=== PATIENT | female | born 1985 | race Caucasian/White ===

== ENCOUNTER 2019-02-20 15:05 | Emergency (ER) | payer MEDICAID ==
[~2019-02-20] VITALS: Ht 160 cm; Wt 65.5 kg
[~2019-02-20 15:05] MED LIST: CLON1TAB PO; SERT100T PO
[2019-02-20 15:10] VITALS: BP 110/65
--- NOTE | 2019-02-20 15:15 | NUR ---
PT AMBULATED TO LOBBY AT THIS TIME, VSS, RR EVEN, NON-LABORED, AND BREATH SOUNDS CLEAR.
--- NOTE | 2019-02-20 15:25 | NUR ---
PT TAKEN TO BED 5.
--- NOTE | 2019-02-20 15:40 | NUR ---
34 Y/O F, PRESENTED TO ED C/O COUGH X3DAYS. PT REPORTED 4 DAYS AGO SHE STARTED HAVING RUNNY NOSE, THE NEXT DAY WITH PRODUCTIVE COUGH AND THICK GREENISH SPUTUM. PT DENIES FEVER, CHILLS, NO N/V/D. PT AAOX4, GCS 15, RR EVEN UNLABORED, LUNG SOUNDS WITH RHONCI ON BILAT BASES OF LUNGS, NO SOB NOTED, VSS, ED MD DR. SHELTON MADE AWARE, WILL CONTINUE TO MONITOR CLOSELY, BED LOCKED IN LOWEST POSITION. MEDHX:ANXIETY RX:KLONOPIN
[2019-02-20 16:05] VITALS: BP 110/65
--- NOTE | 2019-02-20 16:05 | NUR ---
Patient discharged with v/s stable. Written and verbal after care instructions given and explained. Patient alert, oriented and verbalized understanding of instructions. Ambulatory with steady gait. All questions addressed prior to discharge. ID band removed. Patient advised to follow up with PMD. Rx of PROMETHAZINE DM 6.25MG-15MG SYRUP given. Patient educated on indication of medication including possible reaction and side effects. Opportunity to ask questions provided and answered.
== END 2019-02-20 16:05 | disposition home or self-care (01) ==
LOC: MED 15:05
DX: J40 Bronchitis, not specified as acute or chronic (principal); F41.9 Anxiety disorder, unspecified; F17.200 Nicotine dependence, unspecified, uncomplicated; Z79.899 Other long term (current) drug therapy
CPT/HCPCS: 99283; 99406

== ENCOUNTER 2019-04-30 17:11 | Emergency (ER) | payer MEDICAID ==
[~2019-04-30] VITALS: Ht 161.3 cm; Wt 63.5 kg
[2019-04-30 17:28] VITALS: BP 113/75
[2019-04-30 17:50] VITALS: BP 113/75
== END 2019-04-30 17:50 | disposition home or self-care (01) ==
LOC: MED 17:11
DX: F41.9 Anxiety disorder, unspecified (principal); Z79.899 Other long term (current) drug therapy
CPT/HCPCS: 99283

== ENCOUNTER 2019-06-13 15:10 | Emergency (ER) | payer MEDICAID ==
[2019-06-13] MEDS ORDERED: clonazePAM 0.5 MG TAB ONE (17:16)
== END 2019-06-13 19:58 | disposition home or self-care (01) ==
LOC: MED 15:10
DX: S63.502A Unspecified sprain of left wrist, initial encounter (principal); F41.9 Anxiety disorder, unspecified; Z90.49 Acquired absence of other specified parts of digestive tract; W20.8XXA Other cause of strike by thrown, projected or falling object, initial encounter; Y93.89 Activity, other specified; Y92.89 Other specified places as the place of occurrence of the external cause; Y99.8 Other external cause status
CPT/HCPCS: 99284

== ENCOUNTER 2021-03-23 15:29 | Emergency (ER) | payer MEDICAID ==
[~2021-03-23] VITALS: Ht 160 cm; Wt 72.6 kg
[2021-03-23 16:05] VITALS: BP 130/76
[2021-03-23] MEDS: IBUPROFEN 800 MG TAB PO ONE (17:22)
[2021-03-23] MEDS: DEXAMETHASONE 4 MG/ML VIAL PO ONE (17:22)
--- NOTE | 2021-03-23 17:23 | NUR ---
NOVEL AND STREP SWABS DONE. WALKED TO LAB BY ANDRES WILKES
--- NOTE | 2021-03-23 17:24 | NUR ---
STREP SWAB AND COVID NOVEL SWAB COLLECTED AND WALKED OVER TO LAB
[2021-03-23] MEDS ORDERED: IBUP-2213 PO (18:22)
[2021-03-23] MEDS ORDERED: BENZ1LOZ98 PO (18:22)
[2021-03-23 18:41] VITALS: BP 130/76
--- NOTE | 2021-03-23 18:42 | NUR ---
Patient discharged with v/s stable. Written and verbal after care instructions given and explained. Patient alert, oriented and verbalized understanding of instructions. Ambulatory with steady gait. All questions addressed prior to discharge. ID band removed. Patient advised to follow up with PMD. Rx of Benzocaine and Ibuprofen was given. Patient educated on indication of medication including possible reaction and side effects. Opportunity to ask questions provided and answered.
== END 2021-03-23 18:42 | disposition home or self-care (01) ==
LOC: MED 15:29
DX: B34.9 Viral infection, unspecified (principal); Z20.822 Contact with and (suspected) exposure to COVID-19
CPT/HCPCS: 87081; 99283; J1100; U0003

== ENCOUNTER 2021-03-31 19:18 | Emergency (ER) | payer MEDICAID ==
[~2021-03-31] VITALS: Ht 160 cm; Wt 72.6 kg
[~2021-03-31 19:18] MED LIST changes: +BENZ1LOZ98 PO; +IBUP-2213 PO
[2021-03-31 20:07] VITALS: BP 131/82
--- NOTE | 2021-03-31 20:07 | NUR ---
TO TENT AMBULATORY
--- NOTE | 2021-03-31 20:15 | NUR ---
SWAB FOR NOVEL SENT TO LAB
[2021-03-31] MEDS ORDERED: IBUPROFEN 600 MG TAB PO ONE (20:40)
[2021-03-31] MEDS ORDERED: ACETAMINOPHEN 325 MG TAB PO ONE (20:40)
--- NOTE | 2021-03-31 21:18 | NUR ---
MEDICATED PER ERMDS ORDER, TOLERATED WELL.
[2021-03-31] MEDS ORDERED: AMOX500C25 PO (22:40)
--- NOTE | 2021-03-31 22:45 | NUR ---
RESULTS BACK AND NOTED BY ERMD AND FOR D/C
[2021-03-31 23:10] VITALS: BP 119/78
== END 2021-03-31 23:10 | disposition home or self-care (01) ==
LOC: MED 19:18
DX: J02.9 Acute pharyngitis, unspecified (principal); Z20.822 Contact with and (suspected) exposure to COVID-19; M79.10 Myalgia, unspecified site
CPT/HCPCS: 81002; 81025; 86308; 87081; 87086; 99283; U0003

== ENCOUNTER 2021-04-04 18:41 | Emergency (ER) | payer MEDICAID ==
[~2021-04-04] VITALS: Ht 160 cm; Wt 70.3 kg
[~2021-04-04 18:41] MED LIST changes: +AMOX500C25 PO
[2021-04-04 18:58] VITALS: BP 143/73
--- NOTE | 2021-04-04 19:37 | NUR ---
Nneka harvey in [facility] - 04/04/21 at 1939 by DAWSON PT AMBULATED TO BED #4
[2021-04-04 20:17] LABS: BASOPHILS % (AUTO) 0.4 % (0.0-2.0); EOSINOPHILS # (AUTO) 0.3 K/uL (0-0.4); EOSINOPHILS % (AUTO) 4.6 % (0.0-4.0); HEMOGLOBIN 9.2 g/dL (12.0-16.0); LYMPHOCYTES # (AUTO) 1.9 K/uL (2.5-16.5); LYMPHOCYTES % (AUTO) 26.8 % (20.5-51.1); MEAN CORPUSCULAR HEMOGLOBIN 24 pg (27-31); MEAN CORPUSCULAR HGB CONC 32 g/dL (33-37); MEAN CORPUSCULAR VOLUME 77.1 fL (80-94); MONOCYTES # (AUTO) 0.6 K/uL (0.8-1.0); MONOCYTES % (AUTO) 8.4 % (1.7-9.3); NEUTROPHILS # (AUTO) 4.2 K/uL (1.8-7.7); NEUTROPHILS % (AUTO) 59.8 % (42.2-75.2); PLATELET COUNT (AUTO) 357 K/uL (140-450); RED BLOOD CELL COUNT(AUTO) 3.76 MIL/uL (4.20-5.40); RED CELL DISTRIBUTION WIDTH 16.1 % (11.6-13.7)
--- NOTE | 2021-04-04 20:20 | NUR ---
PT TAKEN TO BED #12
--- NOTE | 2021-04-04 20:29 | NUR ---
Patient presents to the ED after experiencing a "sharp" chest pain and dizziness. pt denies symptoms at this time. Patient on RA. no sob or s/s of distress. Patient placed on bedside monitoring. VSS within normal limits. Bed lowered. pt denies other medical hx
[2021-04-04 20:30] LABS: ANION GAP 11.5 (8-16); CARBON DIOXIDE 29.6 mmol/L (21-32); CREATININE 0.8 mg/dL (0.6-1.3); POTASSIUM 4.1 mmol/L (3.5-5.1)
[2021-04-04 22:40] VITALS: BP 111/79
--- NOTE | 2021-04-04 22:41 | NUR ---
Patient discharged with v/s stable. Written and verbal after care instructions given and explained. Patient verbalized understanding. Ambulatory with steady gait. All questions addressed prior to discharge. Advised to follow up with PMD.
== END 2021-04-04 22:41 | disposition home or self-care (01) ==
LOC: MED 18:41
DX: R07.9 Chest pain, unspecified (principal); F41.9 Anxiety disorder, unspecified; F17.210 Nicotine dependence, cigarettes, uncomplicated
CPT/HCPCS: 36415; 71045; 80048; 84484; 85025; 93005; 99285

== ENCOUNTER 2023-10-24 15:55 | Emergency (ER) | payer MEDICAID, OTHER ==
[~2023-10-24] VITALS: Ht 160 cm; Wt 81.6 kg
[~2023-10-24 15:55] MED LIST changes: +BENZ-300 PO; -BENZ1LOZ98 PO
[2023-10-24 16:12] VITALS: BP 121/83; PULSE 104; RESP 18; TEMP 97.6; O2SAT 98
[2023-10-24 18:21] VITALS: BP 122/82; PULSE 88; RESP 16; TEMP 98; O2SAT 99
== END 2023-10-24 18:21 | disposition home or self-care (01) ==
LOC: MED 15:55
DX: R09.A2 Foreign body sensation, throat (principal); T18.128A Food in esophagus causing other injury, initial encounter; Z79.899 Other long term (current) drug therapy; Y92.89 Other specified places as the place of occurrence of the external cause
CPT/HCPCS: 70360; 99283